=== PATIENT | female | born 1950 | race Caucasian/White ===

== ENCOUNTER 2020-10-29 22:20 | Emergency (ER) | payer MEDICARE, BC ==
[~2020-10-29] VITALS: Ht 167.6 cm; Wt 54.7 kg
[2020-10-29] MEDS ORDERED: acetaminophen 325mg tablet PO ONE (23:05)
--- NOTE | 2020-10-29 23:09 | NUR ---
X RAY AT BEDSIDE
--- NOTE | 2020-10-29 23:11 | NUR ---
PTS NEIGHBOR DAMIAN CALLING WITH LILIA (WAS WITH PT AND , SULTANA, AT THEIR HOME WHEN 911 CALLED). HE REPORTS TO ME THAT PT WITH NO CARDIAC HISTORY AND SHE WAS CLUTCHING HER CHEST AND TEARING UP WHEN EVENT HAPPENED AND SHE HAS NO HISTORY OF SUCH AN EVENT. PT ALSO WITH COMPLAINTS OF TAILBONE PAIN AND FAMIY CONCERNED ABOUT BONE CANCER HER BROTHER HAD CANCER IN HIS HIP. THEY ASKED IF ULTRA SOUND OR IMAGING MAY BE DONE WHILE SHE IS HERE FOR THIS TAILBONE PAIN THEY HAVE BEEN TRYING TO GET HER INTO PCP. CALL SON, DAMIAN BRUCE [phone] FOR DC RIDE, AND CALL , SULTANA [phone] (HOME) WITH ANY UPDATES. DR. SEN UPDATED ON ABOVE.
[2020-10-29 23:16] LABS: ALANINE AMINOTRANSFERASE 108 U/L (12-78); ALBUMIN 3.9 G/DL (3.4-5.0); ALBUMIN/GLOBULIN RATIO 1.3 (1.1-1.5); ALKALINE PHOSPHATASE 97 IU/L (46-116); ANION GAP 7 (8-16); ASPARTATE AMINO TRANSFERASE 164 U/L (10-37); BILIRUBIN,TOTAL 0.3 MG/DL (0.1-1.0); BLOOD UREA NITROGEN 26 MG/DL (7-18); BUN/CREATININE RATIO 22.8 (6.6-38.0); CALCIUM 9.3 MG/DL (8.5-10.1); CHLORIDE 108 MMOL/L (99-107); CREATININE 1.14 MG/DL (0.40-0.90); GLUCOSE 105 MG/DL (70-104); POTASSIUM 3.7 MMOL/L (3.5-5.1); SODIUM 143 MMOL/L (135-145); TOTAL CARBON DIOXIDE 28.3 MMOL/L (24-32); TOTAL PROTEIN 6.8 G/DL (6.4-8.2); eGFR 47 ML/MIN
[2020-10-29 23:17] LABS: BASOPHILS % (AUTO) 0.4 % (0-1); EOSINOPHILS # (AUTO) 0.1 X10'3 (0-0.9); EOSINOPHILS % (AUTO) 1.5 % (0-6); HEMATOCRIT 38.1 % (35.0-45.0); LYMPHOCYTES # (AUTO) 0.9 X10'3 (1.1-4.8); LYMPHOCYTES % (AUTO) 13.6 % (21-51); MEAN CORPUSCULAR HEMOGLOBIN 31.5 PG (27.0-31.0); MEAN CORPUSCULAR HGB CONC 34.1 g/dL (33.0-36.5); MEAN CORPUSCULAR VOLUME 92.4 FL (78-98); MEAN PLATELET VOLUME 8.2 FL (7.4-10.4); MONOCYTES # (AUTO) 0.4 X10'3 (0-0.9); MONOCYTES % (AUTO) 6.1 % (2-12); NEUTROPHILS # (AUTO) 5.5 X10'3 (1.8-7.7); NEUTROPHILS % (AUTO) 78.4 % (42-75); PLATELET COUNT 234 X10'3 (140-440); RED BLOOD COUNT 4.12 X10'6 (4.20-5.60); RED CELL DISTRIBUTION WIDTH 14.1 % (11.5-14.5)
[2020-10-29 23:22] LABS: MAGNESIUM 2.3 MG/DL (1.5-2.4); TROPONIN I < 0.04 NG/ML (0.0-0.05)
--- NOTE | 2020-10-30 00:48 | NUR ---
Pt up to BR to void. Ambluating with steady gait. Asking how long she rafael have to be here. Told we are waiting for adtl labs. Pt reports she does not know why she has to be here, states "i cant be here all day...i have things to do". Pt surprised when I told her it was 1230 am. Updated on the events that brought her here and she states she does not remember having CP or going in an ambulance. Getting up from her gurney regularly and is restless. Got up to BR agin. Dr. Coles updated and states to draw her 2nd trop now at 2 hr chio. bp 166/79. Denies any pain. States he will come get her. I told her her son Dmitri will get her when ready for DC. She states "oh will my is probably partying". Pt allowed me to draw her blood. sitting on the gurney now and staring at the VS Monitor.
--- NOTE | 2020-10-30 01:44 | NUR ---
Pts , Yrn, at bedside for DC instructions from myself and Dr. Coles. Pt with bp 130/72. Pts clarifying that Pt does not take any HTN meds and did deal with HTN in the past, but he does not think she currently deals with HTN.
[2020-10-30 02:00] VITALS: BP 133/68
== END 2020-10-30 01:45 | disposition home or self-care (01) ==
LOC: EDBD 22:21 → ER 22:21
DX: M54.5 Low back pain (principal); R07.89 Other chest pain; I10 Essential (primary) hypertension
CPT/HCPCS: 36415; 71045; 80053; 83735; 83880; 84484; 85025; 93005; 99285